=== PATIENT | female | born 1970 | race Caucasian/White ===

== ENCOUNTER 2017-06-23 18:28 | Emergency (ER) | payer OTHER ==
[2017-06-23] MEDS ORDERED: SODIUM CHLORIDE 0.9% 1,000 ML IV STA (19:30)
[2017-06-23] MEDS ORDERED: ALBUTEROL NEBULIZED 2.5 MG/3 ML INHALATION STA (19:30)
[2017-06-23] MEDS ORDERED: ONDANSETRON 4 MG/2 ML VIAL IVP STA (19:31)
--- NOTE | 2017-06-23 20:01 | ED ---
General Adult HPI - General Source: patient, RN notes reviewed, old records reviewed Mode of arrival: ambulatory Limitations: no limitations <Virgen Alberto - Last Filed: 06/23/17 20:01> <Miryam Alonso - Last Filed: 06/23/17 21:29> - General Chief complaint: Shortness of Breath Stated complaint: blair Time Seen by Provider: 06/23/17 18:49 - History of Present Illness Initial comments: This patient is a 47-year-old female chief complaint of 6 weeks of shortness of breath. Patient reports that she has been evaluated multiple times by her primary care physician as well as [facility]. Patient was admitted to [facility] [facility] earlier this month and had a cardiac cath. She reports that it was negative. Patient states that she has not had any wheezing or coughing. She has not tried any inhalers or breathing treatments. Patient states that she has had occasional chest pain throughout the 6 weeks but denies any at this time. She reports that she came today because she felt nauseated and dizzy. Patient reports that she's had no fever or chills. No hemoptysis. No abdominal pain, vomiting or diarrhea. (Virgen Alberto) - Related Data Home Medications Medication Instructions Recorded Confirmed Cholecalciferol [Vitamin D3] 1,000 unit PO DAILY 06/23/17 06/23/17 Cyanocobalamin [Vitamin B-12] 500 mcg PO DAILY 06/23/17 06/23/17 FLUoxetine HCL [PROzac] 20 mg PO DAILY 06/23/17 06/23/17 LORazepam [Ativan] 0.5 mg PO Q6H PRN 06/23/17 06/23/17 Levothyroxine Sodium [Synthroid] 50 mcg PO DAILY 06/23/17 06/23/17 Previous Rx's Medication Instructions Recorded Amoxic-Pot Clav 875-125Mg 1 tab PO Q12HR #14 tablet 06/23/17 [Augmentin 875-125] Fluticasone/Salmeterol [Advair 1 each IH BID #1 blst.w.dev 06/23/17 250-50 Diskus] predniSONE 50 mg PO DAILY #5 tablet 06/23/17 Allergies Allergy/AdvReac Type Severity Reaction Status Date / Time No Known Allergies Allergy Verified 06/23/17 19:09 Review of Systems ROS Other: All systems not noted in ROS Statement are negative. <Daly Albertoily - Last Filed: 06/23/17 20:01> ROS Other: All systems not noted in ROS Statement are negative. <Miryam Alonso - Last Filed: 06/23/17 21:29> ROS Statement: Those systems with pertinent positive or pertinent negative responses have been documented in the HPI. Past Medical History Additional Past Medical History / Comment(s): ectopic preg History of Any Multi-Drug Resistant Organisms: None Reported Past Surgical History: Cholecystectomy, Heart Catheterization Additional Past Surgical History / Comment(s): D&C Past Psychological History: Anxiety Smoking Status: Former smoker Past Alcohol Use History: None Reported Past Drug Use History: None Reported <Virgen Alberto - Last Filed: 06/23/17 20:01> General Exam Limitations: no limitations General appearance: alert, in no apparent distress Head exam: Present: atraumatic, normocephalic, normal inspection Eye exam: Present: normal appearance, PERRL, EOMI. Absent: scleral icterus, conjunctival injection, periorbital swelling ENT exam: Present: normal exam, normal oropharynx, mucous membranes moist, other (Hirsutism ) Neck exam: Present: normal inspection, full ROM. Absent: tenderness, meningismus, lymphadenopathy Respiratory exam: Present: decreased breath sounds. Absent: normal lung sounds bilaterally, respiratory distress, wheezes, rales, rhonchi, stridor Cardiovascular Exam: Present: regular rate, normal rhythm, normal heart sounds. Absent: systolic murmur, diastolic murmur, rubs, gallop, clicks GI/Abdominal exam: Present: soft, normal bowel sounds. Absent: distended, tenderness, guarding, rebound, rigid Extremities exam: Present: normal inspection, full ROM, normal capillary refill. Absent: tenderness, pedal edema, joint swelling, calf tenderness Back exam: Present: normal inspection Neurological exam: Present: alert, oriented X3, CN II-XII intact Psychiatric exam: Present: normal affect, normal mood Skin exam: Present: warm, dry, intact, normal color. Absent: rash <Virgen Alberto - Last Filed: 06/23/17 20:01> <Miryam Alonso - Last Filed: 06/23/17 21:29> - General Exam Comments Initial Comments: Is a morbidly obese 47-year-old female. No distress. (Virgen Alberto) Course <Virgen Alberto - Last Filed: 06/23/17 20:01> <Miryam Alonso - Last Filed: 06/23/17 21:29> Vital Signs 06/23/17 06/23/17 06/23/17 18:40 19:48 19:59 Temperature 98.6 F Pulse Rate 86 74 77 Respiratory 20 Rate Blood Pressure 175/85 O2 Sat by Pulse 97 Oximetry 06/23/17 21:22 Temperature 98.3 F Pulse Rate 82 Respiratory 18 Rate Blood Pressure 133/70 O2 Sat by Pulse 99 Oximetry Patient was reassessed at down at 2120, her troponin, d-dimer, chest x-ray, CBC are all unremarkable she had a cardiac catheter one month ago and now it ruled out any ischemic heart disease I feelthat he COPD she has smoked for about 25 years will put her in a short course of steroids and albuterol inhalers and Flovent and I'll refer her to pulmonary medicine. She also would benefit from sleep studies because she wakes up tired see if there is any sleep apnea she is suffering from (Miryam Alonso) Medical Decision Making - Radiology Data Radiology results: report reviewed <Virgen Alberto - Last Filed: 06/23/17 20:01> - Lab Data Result diagrams: 06/23/17 20:15 06/23/17 20:15 <Miryam Alonso - Last Filed: 06/23/17 21:29> - Lab Data Lab Results 06/23/17 06/23/17 06/23/17 Range/Units 20:15 20:15 20:15 WBC 9.7 (3.8-10.6) k/uL RBC 5.12 (3.80-5.40) m/uL Hgb 14.5 (11.4-16.0) gm/dL Hct 43.9 (34.0-46.0) % MCV 85.8 (80.0-100.0) fL MCH 28.3 (25.0-35.0) pg MCHC 33.0 (31.0-37.0) g/dL RDW 14.3 (11.5-15.5) % Plt Count 238 (150-450) k/uL Neutrophils % 68 % Lymphocytes % 24 % Monocytes % 4 % Eosinophils % 0 % Basophils % 0 % Neutrophils # 6.6 (1.3-7.7) k/uL Lymphocytes # 2.4 (1.0-4.8) k/uL Monocytes # 0.4 (0-1.0) k/uL Eosinophils # 0.0 (0-0.7) k/uL Basophils # 0.0 (0-0.2) k/uL PT (9.0-12.0) sec INR (<1.2) APTT (22.0-30.0) sec D-Dimer (<0.60) mg/L FEU Sodium 145 (137-145) mmol/L Potassium 3.7 (3.5-5.1) mmol/L Chloride 104 (98-107) mmol/L Carbon Dioxide 28 (22-30) mmol/L Anion Gap 13 mmol/L BUN 16 (7-17) mg/dL Creatinine 0.70 (0.52-1.04) mg/dL Est GFR (MDRD) Af Amer >60 (>60 ml/min/1.73 sqM) Est GFR (MDRD) Non-Af >60 (>60 ml/min/1.73 sqM) Glucose 111 H (74-99) mg/dL Calcium 10.0 (8.4-10.2) mg/dL Magnesium 1.7 (1.6-2.3) mg/dL Total Bilirubin 0.3 (0.2-1.3) mg/dL AST 17 (14-36) U/L ALT 40 (9-52) U/L Alkaline Phosphatase 74 (38-126) U/L Total Creatine Kinase 33 (30-135) U/L CK-MB (CK-2) 0.2 (0.0-2.4) ng/mL CK-MB (CK-2) Rel Index 0.6 Troponin I <0.012 (0.000-0.034) ng/mL Total Protein 7.6 (6.3-8.2) g/dL Albumin 4.1 (3.5-5.0) g/dL 06/23/17 Range/Units 20:15 WBC (3.8-10.6) k/uL RBC (3.80-5.40) m/uL Hgb (11.4-16.0) gm/dL Hct (34.0-46.0) % MCV (80.0-100.0) fL MCH (25.0-35.0) pg MCHC (31.0-37.0) g/dL RDW (11.5-15.5) % Plt Count (150-450) k/uL Neutrophils % % Lymphocytes % % Monocytes % % Eosinophils % % Basophils % % Neutrophils # (1.3-7.7) k/uL Lymphocytes # (1.0-4.8) k/uL Monocytes # (0-1.0) k/uL Eosinophils # (0-0.7) k/uL Basophils # (0-0.2) k/uL PT 10.1 (9.0-12.0) sec INR 1.0 (<1.2) APTT 24.0 (22.0-30.0) sec D-Dimer 0.22 (<0.60) mg/L FEU Sodium (137-145) mmol/L Potassium (3.5-5.1) mmol/L Chloride (98-107) mmol/L Carbon Dioxide (22-30) mmol/L Anion Gap mmol/L BUN (7-17) mg/dL Creatinine (0.52-1.04) mg/dL Est GFR (MDRD) Af Amer (>60 ml/min/1.73 sqM) Est GFR (MDRD) Non-Af (>60 ml/min/1.73 sqM) Glucose (74-99) mg/dL Calcium (8.4-10.2) mg/dL Magnesium (1.6-2.3) mg/dL Total Bilirubin (0.2-1.3) mg/dL AST (14-36) U/L ALT (9-52) U/L Alkaline Phosphatase (38-126) U/L Total Creatine Kinase (30-135) U/L CK-MB (CK-2) (0.0-2.4) ng/mL CK-MB (CK-2) Rel Index Troponin I (0.000-0.034) ng/mL Total Protein (6.3-8.2) g/dL Albumin (3.5-5.0) g/dL 06/23/17 20:02 EKG shows normal sinus rhythm, normal EKG. Ventricular rate of 73 bpm. MS interval 180 ms. QRS ration 114 ms. QT QTc is 398/438 ms. (Virgen Alberto) Disposition <Virgen Alberto - Last Filed: 06/23/17 20:01> <Miryam Alonso - Last Filed: 06/23/17 21:29> Clinical Impression: Acute bronchitis with COPD Disposition: HOME SELF-CARE Condition: Good Prescriptions: Amoxic-Pot Clav 875-125Mg [Augmentin 875-125] 1 tab PO Q12HR #14 tablet Fluticasone/Salmeterol [Advair 250-50 Diskus] 1 each IH BID #1 blst.w.dev predniSONE 50 mg PO DAILY #5 tablet Referrals: Obdulio Guadalupe DO [Primary Care Provider] - 1-2 days
[2017-06-23 20:29] LABS: Basophils % (A) 0 %; Eosinophils % (A) 0 %; HCT 43.9 % (34.0-46.0); HGB 14.5 gm/dL (11.4-16.0); Lymphocytes # (A) 2.4 k/uL (1.0-4.8); Lymphocytes % (A) 24 %; MCH 28.3 pg (25.0-35.0); MCV 85.8 fL (80.0-100.0); Monocytes # (A) 0.4 k/uL (0-1.0); Monocytes % (A) 4 %; Neutrophils # (A) 6.6 k/uL (1.3-7.7); Neutrophils % (A) 68 %; Platelet Count 238 k/uL (150-450); RBC 5.12 m/uL (3.80-5.40); RDW 14.3 % (11.5-15.5); WBC 9.7 k/uL (3.8-10.6)
[2017-06-23 20:42] LABS: ALT 40 U/L (9-52); AST 17 U/L (14-36); Albumin 4.1 g/dL (3.5-5.0); Alkaline Phosphatase 74 U/L (38-126); Anion Gap 13 mmol/L; Blood Urea Nitrogen 16 mg/dL (7-17); Carbon Dioxide 28 mmol/L (22-30); Chloride 104 mmol/L (98-107); Glucose 111 mg/dL (74-99); Potassium 3.7 mmol/L (3.5-5.1); Sodium 145 mmol/L (137-145); Total Bilirubin 0.3 mg/dL (0.2-1.3); Total Protein 7.6 g/dL (6.3-8.2)
[2017-06-23 20:48] LABS: D-Dimer 0.22 mg/L FEU (<0.60); Prothrombin Time 10.1 sec (9.0-12.0)
[2017-06-23 20:53] LABS: Creatine Kinase 33 U/L (30-135)
[2017-06-23 21:02] LABS: Creatine Kinase MB 0.2 ng/mL (0.0-2.4)
[2017-06-23 21:06] LABS: Troponin I <0.012 ng/mL (0.000-0.034)
--- NOTE | 2017-06-23 21:10 | XR ---
EXAMINATION TYPE: XR chest 2V DATE OF EXAM: 06/23/2017 COMPARISON: NONE HISTORY: Chest pain TECHNIQUE: Frontal and lateral views of the chest are obtained. FINDINGS: Heart and mediastinum are normal. Lungs are clear of consolidation. There is no pleural ef fusion. There are chest leads. There is mild spurring in the thoracic spine. IMPRESSION: No active cardiopulmonary disease. Normal heart.
[2017-06-23 21:25] VITALS: BP 133/70; PULSE 82; RESP 18; TEMP 98.3
[2017-06-23] MEDS ORDERED: ONDANSETRON ODT 4 MG TAB PO STA (21:41)
[2017-06-23] MEDS ORDERED: ONDANSETRON 4 MG ODT STARTER PACK 2 TAB BTL PO STA (21:41)
== END 2017-06-23 21:49 | disposition home or self-care (01) ==
LOC: EC 18:28
DX: J44.0 Chronic obstructive pulmonary disease with (acute) lower respiratory infection (principal); Z79.899 Other long term (current) drug therapy; Z87.891 Personal history of nicotine dependence
CPT/HCPCS: 36415; 94640; 93005; 85379; 80053; 82550; 82553; 83735; 84484; 85025; 85610; 85730; 71046; 99285; 96374; 96361; J2405; S0119

== ENCOUNTER 2017-07-04 09:54 | Emergency (ER) | payer OTHER ==
[2017-07-04 09:59] VITALS: RESP 18
[2017-07-04] MEDS ORDERED: SODIUM CHLORIDE 0.9% 1,000 ML IV STA (10:23)
[2017-07-04 10:42] LABS: Basophils % (A) 0 %; Eosinophils % (A) 1 %; HCT 44.5 % (34.0-46.0); HGB 14.7 gm/dL (11.4-16.0); Lymphocytes # (A) 1.5 k/uL (1.0-4.8); Lymphocytes % (A) 16 %; MCH 28.3 pg (25.0-35.0); MCHC 32.9 g/dL (31.0-37.0); MCV 86.1 fL (80.0-100.0); Mean Platelet Volume 7.1; Monocytes # (A) 0.6 k/uL (0-1.0); Monocytes % (A) 6 %; Neutrophils # (A) 7.1 k/uL (1.3-7.7); Neutrophils % (A) 75 %; Platelet Count 219 k/uL (150-450); RBC 5.17 m/uL (3.80-5.40); RDW 14.4 % (11.5-15.5); WBC 9.4 k/uL (3.8-10.6)
--- NOTE | 2017-07-04 10:56 | CT ---
EXAMINATION TYPE: CT brain wo con DATE OF EXAM: 07/04/2017 COMPARISON: NONE HISTORY: 47-year-old female complains of whole head numbness and dizziness. TECHNIQUE: Examination was done in axial plane without intravenous contrast. Coronal and sagittal r econstructions performed. CT DLP: 786.2 mGycm Automated exposure control for dose reduction was used. FINDINGS: Some streak and beam hardening related to calvarial artifacts. Within this limitation, no convincing evidence of acute intracranial hemorrhage, acute ischemic alfonso ges, mass, mass-effect, or extra-axial fluid collection. There is no effacement of cerebral sulci or basal subarachnoid cisterns. There is no hydrocephalus. There is no midline shift. Mathews-white mat ter distinction is preserved. Mild mucosal thickening left sphenoid sinus. IMPRESSION: Prominent skull artifacts. Within this limitation, no convincing evidence for acute intracranial abno rmality. Mild chronic left sphenoid sinus disease.
[2017-07-04 11:01] LABS: ALT 100 U/L (9-52); AST 46 U/L (14-36); Albumin 4.1 g/dL (3.5-5.0); Alkaline Phosphatase 75 U/L (38-126); Anion Gap 10 mmol/L; Blood Urea Nitrogen 12 mg/dL (7-17); Calcium 9.9 mg/dL (8.4-10.2); Carbon Dioxide 26 mmol/L (22-30); Chloride 106 mmol/L (98-107); Glucose 103 mg/dL (74-99); Magnesium 1.7 mg/dL (1.6-2.3); Phosphorus 3.5 mg/dL (2.5-4.5); Potassium 4.6 mmol/L (3.5-5.1); Sodium 142 mmol/L (137-145); Total Bilirubin 0.7 mg/dL (0.2-1.3); Total Protein 7.5 g/dL (6.3-8.2)
--- NOTE | 2017-07-04 11:03 | ED ---
General Adult HPI - General Chief complaint: Neuro Symptoms/Deficit Stated complaint: Facial numbness Time Seen by Provider: 07/04/17 10:01 Source: patient, RN notes reviewed, old records reviewed Mode of arrival: ambulatory Limitations: no limitations - History of Present Illness Initial comments: This is a 47-year-old female to the ER for evaluation today. She presents today for evaluation regards to facial numbness. Patient has no specific medical history of stroke or heart disease. Patient states she has had Occasional migraines or headaches. Since her family doctor yesterday was started on antidepressant. Patient's symptoms be going on and off since April briefly more consistent. 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 - Related Data Home Medications Medication Instructions Recorded Confirmed Cholecalciferol [Vitamin D3] 1,000 unit PO DAILY 06/23/17 06/23/17 Cyanocobalamin [Vitamin B-12] 500 mcg PO DAILY 06/23/17 06/23/17 FLUoxetine HCL [PROzac] 20 mg PO DAILY 06/23/17 06/23/17 LORazepam [Ativan] 0.5 mg PO Q6H PRN 06/23/17 06/23/17 Levothyroxine Sodium [Synthroid] 50 mcg PO DAILY 06/23/17 06/23/17 Previous Rx's Medication Instructions Recorded Amoxic-Pot Clav 875-125Mg 1 tab PO Q12HR #14 tablet 06/23/17 [Augmentin 875-125] Fluticasone/Salmeterol [Advair 1 each IH BID #1 blst.w.dev 06/23/17 250-50 Diskus] predniSONE 50 mg PO DAILY #5 tablet 06/23/17 Allergies Allergy/AdvReac Type Severity Reaction Status Date / Time No Known Allergies Allergy Verified 07/04/17 09:58 Review of Systems ROS Statement: Those systems with pertinent positive or pertinent negative responses have been documented in the HPI. ROS Other: All systems not noted in ROS Statement are negative. Past Medical History Past Medical History: COPD Additional Past Medical History / Comment(s): ectopic preg History of Any Multi-Drug Resistant Organisms: None Reported Past Surgical History: Cholecystectomy, Heart Catheterization Additional Past Surgical History / Comment(s): D&C Past Psychological History: Anxiety Smoking Status: Former smoker Past Alcohol Use History: Occasional Past Drug Use History: None Reported General Exam Limitations: no limitations General appearance: alert, in no apparent distress Head exam: Present: atraumatic, normocephalic, normal inspection Eye exam: Present: normal appearance, PERRL, EOMI. Absent: scleral icterus, conjunctival injection, periorbital swelling ENT exam: Present: normal exam, mucous membranes moist Neck exam: Present: normal inspection. Absent: tenderness, meningismus, lymphadenopathy Respiratory exam: Present: normal lung sounds bilaterally. Absent: respiratory distress, wheezes, rales, rhonchi, stridor Cardiovascular Exam: Present: regular rate, normal rhythm, normal heart sounds. Absent: systolic murmur, diastolic murmur, rubs, gallop, clicks GI/Abdominal exam: Present: soft, normal bowel sounds. Absent: distended, tenderness, guarding, rebound, rigid Extremities exam: Present: normal inspection, full ROM, normal capillary refill. Absent: tenderness, pedal edema, joint swelling, calf tenderness Back exam: Present: normal inspection Neurological exam: Present: alert, oriented X3, CN II-XII intact Psychiatric exam: Present: normal affect, normal mood Skin exam: Present: warm, dry, intact, normal color. Absent: rash Course Vital Signs 07/04/17 07/04/17 09:54 10:05 Temperature 96.7 F L Pulse Rate 78 79 Respiratory 18 18 Rate Blood Pressure 147/97 150/82 O2 Sat by Pulse 98 97 Oximetry - Reevaluation(s) Reevaluation #1: 07/04/17 11:02 Patient has no prominent or focal neurological deficit EKG Findings - EKG Comments: EKG Findings:: EKG shows normal sinus rhythm rate of 66, ND 178, QRS 108, QTC 425 Medical Decision Making - Medical Decision Making 39 female the ER for evaluation patient is evaluation regards to neurological complaint, positive paresthesia, no significant cause found. CT negative. Patient to continue to follow-up with primary care - Lab Data Result diagrams: 07/04/17 10:20 Lab Results 07/04/17 Range/Units 10:20 WBC 9.4 (3.8-10.6) k/uL RBC 5.17 (3.80-5.40) m/uL Hgb 14.7 (11.4-16.0) gm/dL Hct 44.5 (34.0-46.0) % MCV 86.1 (80.0-100.0) fL MCH 28.3 (25.0-35.0) pg MCHC 32.9 (31.0-37.0) g/dL RDW 14.4 (11.5-15.5) % Plt Count 219 (150-450) k/uL Neutrophils % 75 % Lymphocytes % 16 % Monocytes % 6 % Eosinophils % 1 % Basophils % 0 % Neutrophils # 7.1 (1.3-7.7) k/uL Lymphocytes # 1.5 (1.0-4.8) k/uL Monocytes # 0.6 (0-1.0) k/uL Eosinophils # 0.0 (0-0.7) k/uL Basophils # 0.0 (0-0.2) k/uL - Radiology Data Radiology results: report reviewed (CT brain negative for acute disease), image reviewed Disposition Clinical Impression: Paresthesia, Anxiety Disposition: HOME SELF-CARE Condition: Good Instructions: Paresthesia (ED) Referrals: Roly Garcia DO [Primary Care Provider] - 1-2 days
[2017-07-04 11:10] LABS: Creatine Kinase 28 U/L (30-135)
[2017-07-04 11:12] LABS: Partial Thromboplastin Time 23.8 sec (22.0-30.0); Prothrombin Time 10.2 sec (9.0-12.0)
[2017-07-04 11:24] LABS: Creatine Kinase MB <0.2 ng/mL (0.0-2.4); Troponin I <0.012 ng/mL (0.000-0.034)
[2017-07-04 11:49] VITALS: BP 124/70; PULSE 64; TEMP 97.3
== END 2017-07-04 11:50 | disposition home or self-care (01) ==
LOC: EC 09:54
DX: F41.9 Anxiety disorder, unspecified (principal); R20.2 Paresthesia of skin; Z87.891 Personal history of nicotine dependence; Z79.899 Other long term (current) drug therapy
CPT/HCPCS: 36415; 70450; 80053; 82550; 82553; 83735; 84100; 84484; 85025; 85610; 85730; 93005; 99285

== ENCOUNTER → 2024-05-19 | Day surgery (SDC) | payer MEDICARE, OTHER ==
[~2024-05-19] MED LIST: HYDROmorphone 0.5 MG/0.5 ML SYRINGE IVP PRN; KETAMINE HCL IN 0.9 % NACL 50 MG/5 ML SYRINGE ONE; MIDAZOLAM 2 MG/2 ML VIAL ONE; PROPOFOL 10 MG/ML 20 ML VIAL IV ONE
[2024-05-19 13:00] VITALS: RESP 16; TEMP 97
[2024-05-19] MEDS: IV FLUID CONTINUATION 1,000 ML IV ONE (13:15)
[2024-05-19 13:16] LABS: Glucose,Whole Blood 101 mg/dL (70-110)
[2024-05-19] MEDS: LACTATED RINGERS 1,000 ML IV SCH (13:22)
[2024-05-19] MEDS: DEXAMETHASONE SOD PHOSPHATE 4 MG/ML 1 ML VIAL IV ONE (13:23)
[2024-05-19] MEDS: ONDANSETRON 4 MG/2 ML VIAL IVP ONE (13:23)
[2024-05-19] MEDS: BUPIVACAINE (PF) 0.25% 30 ML VIAL SQ ONE ×2 (13:42)
[2024-05-19] MEDS: ceFAZolin 3 GM in SODIUM CHLORIDE 0.9% 100 ML IVPB PRN (13:48)
--- NOTE | 2024-05-19 14:39 | P.PCN ---
Date of Procedure: 05/19/24 Preoperative Diagnosis: History of breast cancer Postoperative Diagnosis: History of breast cancer Procedure(s) Performed: Mediport removal Anesthesia: MAC Surgeon: Terri Perales Pathology: none sent Condition: stable Disposition: same day Indications for Procedure: 54-year-old female with history of breast cancer had Mediport placed approximately 3 years ago. She is no longer requiring any chemotherapy or repetitive blood draws. She is requesting removal of her Mediport. Risks, benefits and alternatives were provided to the patient. All questions answered. Operative Findings: Removal of entire port and catheter Description of Procedure: Patient was brought to the operating suite and placed in supine position on the operating table. Sedation provided by anesthesia and patient was prepped and draped in regular sterile fashion. Local anesthetic was administered over the palpable Mediport site. Incision was made and dissection was carried towards the hub of the port. This was grasped with a hemostat and capsule was dissected free from the Mediport site. Mediport was noted to be sutured in 3 points and all sutures were cut and removed. Mediport was freed from surrounding adherent capsule and a [id number] 3-0 Vicryl suture was placed at the catheter insertion site. This was tied down as the Mediport was slowly removed with catheter. Hemostasis was noted to be maintained. Cautery was used along capsule. Wound was then irrigated and closed with 3-0 Vicryl and 4-0 Vicryl subcuticular suture in layers. Sterile dressing was applied. The patient was awakened in the operating suite and taken to postanesthesia care unit in stable condition.
[2024-05-19 14:46] VITALS: PULSE 81
[2024-05-19 14:49] VITALS: BP 137/83
== END | disposition home or self-care (01) ==
LOC: OR 11:47
PROVIDERS: ATTEND Surgery
DX: Z85.3 Personal history of malignant neoplasm of breast (principal); J44.9 Chronic obstructive pulmonary disease, unspecified; G47.33 Obstructive sleep apnea (adult) (pediatric); F41.9 Anxiety disorder, unspecified; E11.9 Type 2 diabetes mellitus without complications; Z87.891 Personal history of nicotine dependence; Z45.2 Encounter for adjustment and management of vascular access device; Z79.84 Long term (current) use of oral hypoglycemic drugs; Z79.899 Other long term (current) drug therapy
CPT/HCPCS: 36590; J1100; J0690; J2405; J0665

== ENCOUNTER → 2024-07-29 | Outpatient (CLI) | payer MEDICARE, OTHER ==
--- NOTE | 2024-07-29 11:48 | MM ---
Reason for Exam: Hx of breast cancer, conservation therapy. Last screening mammogram was performed 12 month(s) ago. Patient History: Menarche at age 12. First Full-Term at age 18. Postmenopausal. Patient has history of breast feeding. Breast cancer, left, age 52. Previous chest radiation therapy at age 52. 2022, Lumpectomy on the Left side. 2022, Radiation Therapy on the left side. 2022, Chemotherapy. Maternal aunt had breast cancer. Prior Study Comparison: 07/31/2017 Bilateral MG 3D screening mammo w/cad, Unknown. 10/04/2020 Bilateral MG screening mammo w CAD - 2, [facility]. 07/29/2023 Bilateral MG screening mammo w CAD - 2, [facility]. Tissue Density: There are scattered areas of fibroglandular density. Findings: Analyzed By CAD. Postsurgical and posttreatment changes left breast. Irregular density central posterior left breast corresponding to the lumpectomy scar. Fat necrosis calcifications anterior left breast. A couple surgical clips of the axilla also noted. No significant change otherwise seen. Overall Assessment: Probably benign, BI-RAD 3 Management: Diagnostic Mammogram of the left breast in 6 months. Ongoing short interval surveillance follow-up within 3 years of patient's breast cancer. Results were given to the patient verbally at the time of exam. Patient should continue monthly self-breast exams. A clinical breast exam by your physician is recommended on an annual basis. This exam should not preclude additional follow-up of suspicious palpable abnormalities. [facility], , 07/29/2024 11:45 AM. Electronically signed and approved by: Akshat Acuna M.D. Radiologist
== END | disposition home or self-care (01) ==
LOC: RADMAMWWP 11:05
PROVIDERS: ATTEND Internal Medicine
DX: C50.312 Malignant neoplasm of lower-inner quadrant of left female breast (principal); R92.323 Mammographic fibroglandular density, bilateral breasts; F41.8 Other specified anxiety disorders; J45.998 Other asthma; J44.9 Chronic obstructive pulmonary disease, unspecified; Z78.0 Asymptomatic menopausal state; Z85.3 Personal history of malignant neoplasm of breast; Z80.3 Family history of malignant neoplasm of breast
CPT/HCPCS: 77066; G0279; 77062

== ENCOUNTER → 2024-10-15 | Outpatient (CLI) | payer MEDICARE, OTHER ==
--- NOTE | 2024-10-15 08:37 | USB ---
Reason for Exam: Clinical finding. Patient History: Menarche at age 12. First Full-Term at age 18. Postmenopausal. Patient has history of breast feeding. Breast cancer, left, age 52. Previous chest radiation therapy at age 52. 2022, Lumpectomy on the Left side. 2022, Radiation Therapy on the left side. 2022, Chemotherapy. Maternal aunt had breast cancer. Prior Study Comparison: 10/04/2020 Bilateral MG screening mammo w CAD - 2, [facility]. 07/29/2023 Bilateral MG screening mammo w CAD - 2, [facility]. 07/29/2024 Bilateral MG 3D diag mammo w/cad [facility]. Findings: The whole breast of the left breast, the axilla of the left breast and the retroareolar of the left breast were scanned. Technique utilized:US breast complete LT Image; Ultrasound imaging of: Area of concern, retroareolar region and axilla. No evidence for organizing fluid collection or mass. No finding at 1:00 in the area of palpable abnormality. Overall Assessment: Negative, BI-RAD 1 Management: Screening Mammogram of both breasts in 1 year. A clinical breast exam by your physician is recommended on an annual basis and results should be correlated with mammographic findings. This exam should not preclude additional follow-up of suspicious palpable abnormalities. Results were given to the patient verbally at the time of exam. [facility], , 10/15/2024 7:43 AM. Electronically signed and approved by: Jovan Raymundo DO
== END | disposition home or self-care (01) ==
LOC: RADUSWWP 07:05
PROVIDERS: ATTEND Internal Medicine
DX: C50.312 Malignant neoplasm of lower-inner quadrant of left female breast (principal); J45.998 Other asthma; F41.8 Other specified anxiety disorders; J44.9 Chronic obstructive pulmonary disease, unspecified; Z78.0 Asymptomatic menopausal state; Z80.3 Family history of malignant neoplasm of breast; Z85.3 Personal history of malignant neoplasm of breast